=== PATIENT | male | born 1955 | race Caucasian/White ===

== ENCOUNTER → 2017-09-19 | Day surgery (SDC) | payer OTHER ==
[~2017-09-19] VITALS: Ht 193 cm; Wt 117.5 kg
[~2017-09-19] MED LIST: ALLOPURINOL300 M1 PO; ASPIRIN EC81 M1 PO; ATORVASTATIN CA40 M1 PO; DULOXETINE HCL30 MG PO; GABAPENTIN300 M2 PO; METOPROLOL TART25 M1 PO; OMEPRAZOLE20 M2 PO; PREDNISONE20 M1 PO
--- NOTE | 2017-09-19 10:25 | Operative Report ---
Operative/Inv Procedure Report Surgery Date: 09/19/17 Name of Procedure: None Pre-Operative Diagnosis: Left groin mass Post-Operative Diagnosis: Resolved inflammatory mass Estimated Blood Loss: none Surgeon/Plunger Shovel Operator: Regis Hdez MD Anesthesia: moderate sedation Operative Indication: 61-year-old male with new subcutaneous mass of the left groin. He presents for excisional biopsy Operative/Procedure Note Note: Patient brought to the operative laid supine. Sedation was obtained and he was positioned. The area was evaluated and I could not palpate the lesion of interest. After an extensive evaluation, patient was allowed to awaken from anesthesia. He could not find a mass either. He states it had been regressing over the past few days. We elected to abort the operation without making an unnecessary incision. Findings: Resolution of the mass CC: Elvin MURRELL,Alejandro Sawyer
== END ==
LOC: STS 02:14
DX: D48.1 Neoplasm of uncertain behavior of connective and other soft tissue (principal); Z53.8 Procedure and treatment not carried out for other reasons; E11.9 Type 2 diabetes mellitus without complications; Z79.84 Long term (current) use of oral hypoglycemic drugs; I25.10 Atherosclerotic heart disease of native coronary artery without angina pectoris; I10 Essential (primary) hypertension
CPT/HCPCS: J0690; J2250